=== PATIENT | female | born 1950 | race Caucasian/White ===

== ENCOUNTER 2024-08-31 06:29 | Observation (INO) ==
[~2024-08-31 06:29] MED LIST: NS 0.45% 1000 ml BAG 1,000 ML IV SCH; Naloxone 0.4 mg VIAL 0.4 mg/ml 1 ml VIAL IV PRN; Ondansetron 4 mg VIAL 2 MG/ML 2 ml VIAL IV PRN; fentaNYL 100 mcg/2 ml 50 MCG/ML VIAL IV PRN
[2024-08-31] MEDS ORDERED: fentaNYL 100 mcg/2 ml 50 MCG/ML VIAL ONE (06:58)
[2024-08-31] MEDS ORDERED: Lidocaine 2% PF 5 ML VIAL ONE ×2 (06:58→09:04)
[2024-08-31] MEDS ORDERED: Midazolam 2 mg/2 ml VIAL 1 mg/ml 2 ml VIAL (2 mg) ONE ×2 (06:58→09:23)
[2024-08-31] MEDS ORDERED: Phenylephrine IV 10 MG/ML 1 ml VIAL ONE (06:58)
[2024-08-31] MEDS ORDERED: Ondansetron 4 mg VIAL 2 MG/ML 2 ml VIAL ONE (07:06)
[2024-08-31 07:16] LABS: Rapid COVID-19 Molecular Undetected (Undetected)
[2024-08-31] MEDS ORDERED: ROPIVACAINE 5 MG/ML 30 ML BTL (0.5%) ONE (07:43)
[2024-08-31] MEDS ORDERED: Famotidine IV 10 MG/ML 2 ml VIAL (20 mg) ONE (08:06)
[2024-08-31] MEDS ORDERED: Dexamethasone IV 4 MG/ML VIAL 1 ml VIAL ONE (08:06)
[2024-08-31] MEDS ORDERED: ceFAZolin 2 GM PREMIX 2 GM/50 ML BAG ONE (08:12)
[2024-08-31] MEDS ORDERED: Tranexamic Acid 1 GM/100ML BAG 2,000 MG/200 ML BAG IV ONE (08:13)
[2024-08-31] MEDS: Acetaminophen IV 1 GM/100ML 1,000 MG/100 ML BAG IV ONE (08:15)
[2024-08-31] MEDS: Lactated Ringers 1000 ml BAG 1,000 ML IV SCH ×2 (08:15→13:38)
[2024-08-31] MEDS: Buffered Lidocaine 1% SYRIN 1 ml INTRADERM ONE (08:15)
[2024-08-31] MEDS ORDERED: Metoclopramide 5 MG/ML VIAL (10 mg) ONE (09:13)
[2024-08-31] MEDS ORDERED: Propofol 10 MG/ML 20 ML BTL ONE (10:45)
[2024-08-31] MEDS ORDERED: Magnesium Hydroxide LIQ 30 ML UDC PO PRN (11:43)
[2024-08-31] MEDS ORDERED: Ondansetron ODT 4 mg TAB 4 MG TAB PO PRN (11:43)
[2024-08-31] MEDS ORDERED: Morphine 2 MG/ML SYRINGE IV PRN (11:43)
[2024-08-31] MEDS ORDERED: Lactulose 30 ml UDC PO PRN (11:43)
[2024-08-31] MEDS ORDERED: Calcium Carb (TUMS) 500 mg CHEW TAB PO PRN (11:43)
[2024-08-31] MEDS ORDERED: Ondansetron 4 mg VIAL 2 MG/ML 2 ml VIAL IV PRN (11:43)
[2024-08-31] MEDS: ceFAZolin 2 GM PREMIX 2 GM/50 ML BAG IV SCH (16:53)
[2024-08-31 17:41] VITALS: BP 131/77
[2024-08-31] MEDS ORDERED: Magnesium Hydroxide LIQ 30 ML UDC PO SCH (21:00)
[2024-09-01] MEDS ORDERED: Vitamin THERAPEUTIC TAB PO SCH (09:00)
== END 2024-08-31 18:15 | disposition home or self-care (01) ==
LOC: SSU 06:29 → OR 06:29
PROVIDERS: ADMIT Orthopaedic Surgery Adult Reconstructive Orthopaedic Surgery; ATTEND Orthopaedic Surgery Adult Reconstructive Orthopaedic Surgery